=== PATIENT | male | born 1990 | race Caucasian/White ===

== ENCOUNTER 2020-11-19 15:59 | Emergency (ER) | payer SELFPAY ==
--- NOTE | ~2020-11-19 | CT_ITS ---
EXAMINATION: CT brain wo con DATE: 11/19/2020 18:08 INDICATION: Headache. Left-sided photophobia. Nausea and vomiting. TECHNIQUE: Computed tomography (CT) of the head was performed without intravenous contrast. The mA wa s adjusted according to patient size. Iterative reconstruction technique was employed. The dose-lengt h product was 605.33 mGy-cm. COMPARISON: None FINDINGS: There is no intracranial hemorrhage, acute infarction, or abnormal intracranial mass lesion . The ventricles are normal in size. There is mild mucosal thickening in the ethmoid sinuses. The mas toid air cells are normal. The orbits are normal. IMPRESSION: 1. Normal brain. Reviewed, dictated and finalized at location A. IMPRESSION: 1. Normal brain.
[2020-11-19 16:11] VITALS: BP 122/77; PULSE 80; RESP 18; TEMP 36.6; O2SAT 100
[2020-11-19 17:15] VITALS: BP 124/75; PULSE 69; RESP 20; TEMP 36.9; O2SAT 99
[2020-11-19 18:20] VITALS: BP 131/84; PULSE 71; RESP 20; O2SAT 100
--- NOTE | 2020-11-19 19:01 | ED.GENADULT ---
HPI - General Adult General Chief complaint: Headache <JOSÉ Cardenas Last Filed: 11/19/20 20:01> Stated complaint: Headaches/n/v <JOSÉ Cardenas Last Filed: 11/19/20 20:01> Time Seen by Provider: 11/19/20 17:15 <JOSÉ Cardenas Last Filed: 11/19/20 20:01> Source: patient <JOSÉ Cardenas Last Filed: 11/19/20 20:01> Mode of arrival: ambulatory <JOSÉ Cardenas Last Filed: 11/19/20 20:01> Limitations: no limitations <JOSÉ Cardenas Last Filed: 11/19/20 20:01> History of Present Illness HPI narrative: Patient presents with chief complaint of severe left-sided headache that began last night. He states the pain was very sharp on the left side of his face. He states that today he also had a headache and noticed changes in vision. Patient states he is not had headaches in the past so this concerned him. He states today the headache was a sharp that caused nausea and vomiting. Patient denies head injury, changes in vision or hearing at this time. Patient states his headache has improved since being in emergency department. He states that he smoked marijuana but denies any other recreational drug usage. Patient denies any neck pain, fever, chills additional vomiting, diarrhea or abdominal pain. He denies any drainage from any of his orifices. He denies any daily medications. Patient states that he is very concerned that he does not typically have headaches especially of this nature. <JOSÉ Cardenas Last Filed: 11/19/20 20:01> Related Data Home medications: Home Medications Medication Instructions Recorded Confirmed No Home Medications 11/19/20 11/19/20 <JOSÉ Cardenas Last Filed: 11/19/20 20:01> Allergies/adverse reactions: Allergies Allergy/AdvReac Type Severity Reaction Status Date / Time No Known Allergies Allergy Verified 11/19/20 17:23 <JOSÉ Cardenas Last Filed: 11/19/20 20:01> Review of Systems Review of Systems: CONSTITUTIONAL: Denies fever, chills, or sweats. EYES: Denies visual changes, redness, or discharge. ENT: Denies rhinorrhea, congestion, sore throat, or otalgia. CARDIOVASCULAR: Denies chest pain, palpitations, or edema. RESPIRATORY: Denies cough or dyspnea. GASTROINTESTINAL: Denies abdominal pain, nausea, vomiting, or diarrhea. GENITOURINARY: Denies dysuria or hematuria. SKIN: Denies rash or itching. MUSCULOSKELETAL: Denies back pain, joint pain, or myalgia. NEUROLOGIC: Reports headache, denies numbness, dizziness, or weakness. PSYCHIATRIC: Denies anxiety or depression. <Brian Ramírez PA-C - Last Filed: 11/19/20 20:01> Exam Narrative: GENERAL: Well-appearing, well-nourished, and in no acute distress. HEAD: Normocephalic, atraumatic. EYES: PERRLA and EOMI. ENT: Nares clear, no rhinorrhea or epistaxis. Mucous membranes moist. Oropharynx without tonsillar hypertrophy exudate or other lesions. Bilateral TMs pearly trotter nonbulging NECK: Supple. No adenopathy or masses. No carotid bruits or JVD CHEST: Clear to auscultation. No respiratory distress. No wheezes rales or rhonchi HEART: Regular rate and rhythm. No murmur heard. Normal peripheral pulses. ABDOMEN: Soft, nontender, nondistended, normal active bowel sounds. EXTREMITIES: Normal range of motion. No edema. SKIN: Warm, dry, no rash. NEURO: No focal deficits. Alert and oriented x3. PSYCH: Anxious mood and affect. <Brian Ramírez PA-C - Last Filed: 11/19/20 20:01> Course Vital Signs Vital signs: Vital Signs Temperature 98 F 11/19/20 16:11 Pulse Rate 80 11/19/20 16:11 Respiratory Rate 18 11/19/20 16:11 Blood Pressure 122/77 11/19/20 16:11 Pulse Oximetry 100 11/19/20 16:11 Temperature 98.5 F 11/19/20 17:15 Pulse Rate 71 11/19/20 18:20 Respiratory Rate 20 11/19/20 18:20 Blood Pressure 131/84 11/19/20 18:20 Pulse Oximetry 100 11/19/20 18:20 <Brian Ramírez PA-C - [place]
== END 2020-11-19 18:20 | disposition home or self-care (01) ==
PROVIDERS: Emergency Provider General Practice
DX: R51.9 Headache, unspecified (principal)
CPT/HCPCS: 70450; 99284